=== PATIENT | female | born 1985 ===

== ENCOUNTER 2021-11-08 09:02 | Day surgery (SDC) | payer BC ==
[~2021-11-08 09:02] MED LIST: Lactated Ringers 1,000 ML IV SCH; Lidocaine 1%/Sod Bicarbonate in NS 8.4% 1 ML Syringe IDERM PRN; Sodium Chloride 0.9% 10 ML Syringe FLUSH PRN; Sodium Chloride 0.9% 10 ML Syringe FLUSH SCH; fentaNYL 100 MCG/2 ML SDV ONE
[2021-11-08] MEDS ORDERED: Dexamethasone 4 MG/ML 5 ML MDV ONE (09:12)
[2021-11-08] MEDS ORDERED: Propofol 200 MG/20 ML SDV ONE (09:12)
[2021-11-08] MEDS ORDERED: Ketorolac 30 MG/ML SDV ONE (09:12)
[2021-11-08] MEDS ORDERED: Ondansetron 4 MG/2 ML SDV ONE (09:12)
[2021-11-08] MEDS ORDERED: Rocuronium 50 MG/5 ML Vial ONE (09:12)
[2021-11-08] MEDS ORDERED: ceFAZolin 1 GM Vial ONE (09:12)
[2021-11-08] MEDS ORDERED: Lidocaine 1% 4 ML ONE (09:12)
[2021-11-08] MEDS ORDERED: Lactated Ringers 1,000 ML ONE (09:12)
[2021-11-08] MEDS ORDERED: Midazolam 1 MG/ML 2 ML SDV ONE ×2 (09:13→09:54)
[2021-11-08] MEDS ORDERED: HYDROmorphone 0.5 MG/0.5 ML Syringe ONE (09:13)
[2021-11-08] MEDS ORDERED: fentaNYL 100 MCG/2 ML SDV ONE (09:13)
[2021-11-08] MEDS ORDERED: Scopolamine 1.5 MG Transdermal Patch TRDERM PRN (09:39)
[2021-11-08] MEDS ORDERED: Lidocaine 1% with EPINEPHrine 1:100,000 20 ML MDV ONE (10:38)
[2021-11-08] MEDS ORDERED: Bupivacaine 0.5% 30 ML SDV ONE (10:38)
[2021-11-08] MEDS ORDERED: Sodium Chloride 0.9% 50 ML SDV ONE (10:38)
[2021-11-08] MEDS ORDERED: ePHEDrine 50 MG/ML SDV IVPUSH PRN (11:25)
[2021-11-08] MEDS ORDERED: Metoclopramide 10 MG/2 ML SDV IV PRN (11:30)
[2021-11-08] MEDS ORDERED: fentaNYL 100 MCG/2 ML SDV IVPUSH PRN (11:30)
[2021-11-08] MEDS ORDERED: HYDROmorphone 0.5 MG/0.5 ML Syringe IVPUSH PRN (11:30)
[2021-11-08] MEDS ORDERED: Ondansetron 4 MG/2 ML SDV IVPUSH PRN (11:30)
[2021-11-08] MEDS ORDERED: Phenylephrine 1% 10 MG/ML SDV IVPUSH PRN (11:30)
[2021-11-08] MEDS ORDERED: diphenhydrAMINE 50 MG/ML SDV IVPUSH PRN (11:30)
[2021-11-08] MEDS ORDERED: Midazolam 1 MG/ML 2 ML SDV IVPUSH PRN (11:30)
[2021-11-08] MEDS ORDERED: Neostigmine Methylsulfate 10 MG/10 ML MDV ONE (12:38)
[2021-11-08] MEDS ORDERED: Acetaminophen/HYDROcodone 325-5 MG Tab PO SCH (13:20)
== END 2021-11-08 16:00 | disposition home or self-care (01) ==
LOC: JD.SDS 09:02
PROVIDERS: ATTEND Obstetrics & Gynecology
DX: N80.0 Endometriosis of uterus (principal); F41.9 Anxiety disorder, unspecified; F32.A Depression, unspecified; Z88.0 Allergy status to penicillin; K21.9 Gastro-esophageal reflux disease without esophagitis; Z98.891 History of uterine scar from previous surgery; Z79.899 Other long term (current) drug therapy
CPT/HCPCS: 36415; 58552; 81003; 81025; 86850; 86900; 86901; A9270; J0690; J1100; J1170; J1885; J2250; J2405; J2704; J2710; J3010; J3490; J7120; 00944